=== PATIENT | female | born 1965 ===

== ENCOUNTER → 2023-01-29 | Outpatient (CLI) | payer OTHER ==
[2023-01-29 12:53] LABS: Alanine Aminotransfer (ALT/SGP 28 U/L (12-78); Albumin, Blood 3.8 g/dL (3.4-5.0); Alk Phos 70 U/L (50-136); Anion Gap 8 mmol/L (6-16); Aspartate Aminotrans (AST/SGOT 19 U/L (12-37); Bilirubin, Total 0.4 mg/dL (0.1-1.0); Blood Urea Nitrogen 11 mg/dL (8-24); Bun/Creatinine Ratio 15.5 (12.0-20.0); CHOL/HDL RATIO 2.6; CO2, Blood 26 mmol/L (21-32); Chloride, Blood 108 mmol/L (98-108); Cholesterol 183 mg/dL (50-200); Creatinine, Blood 0.71 mg/dL (0.40-1.00); Globulin, Blood 3.8 g/dL (2.2-4.0); Glomerular Filtration Rate 100 (60-); Glucose, Blood 102 mg/dL (70-99); HDL Cholesterol 70 mg/dL (>39); LDL/HDL RATIO 1.3; Low Density Lipoprotein Chol 92 mg/dL (0-110); Potassium, Blood 3.9 mmol/L (3.5-5.5); Sodium, Blood 142 mmol/L (136-145); Total Protein, Blood 7.6 g/dL (6.4-8.2); Triglycerides 106 mg/dL (30-160); Very Low Density Lipoprot Chol 21 mg/dL (6-32)
== END | disposition home or self-care (01) ==
LOC: LAB 09:30 → LAB SHORT 09:30
PROVIDERS: Physician Assistant
DX: Z00.00 Encounter for general adult medical examination without abnormal findings (principal)
CPT/HCPCS: 80053; 80061

== ENCOUNTER → 2024-05-05 | Outpatient (CLI) | payer OTHER ==
[2024-05-19 09:00] LABS: HPV GENOTYPE 16 BY TMA Not Detected; HPV GENOTYPE 18/45 BY TMA Not Detected; HPV HIGH RISK BY TMA Detected; HPV SOURCE Cervical; HPVG SOURCE Cervical
== END ==
LOC: LAB 10:34 → LAB SHORT 10:34
PROVIDERS: Family Medicine
DX: Z01.419 Encounter for gynecological examination (general) (routine) without abnormal findings (principal)
CPT/HCPCS: 87624; 87625; G0123

== ENCOUNTER → 2024-10-20 | Outpatient (CLI) | payer OTHER | END | disposition home or self-care (01) | LOC: LAB 13:23 → LAB SHORT 13:23 | DX: R87.613 High grade squamous intraepithelial lesion on cytologic smear of cervix (HGSIL) (principal) | CPT/HCPCS: 88305 ==

== ENCOUNTER 2024-11-27 06:58 | Day surgery (SDC) | payer OTHER ==
[~2024-11-27] VITALS: Ht 175.3 cm; Wt 119.6 kg
[~2024-11-27 06:58] MED LIST: Lactated Ringer's 1,000 ML IV ONE; Vasopressin 20 UNITS/ML 1ML Vial ONE
[2024-11-27] MEDS ORDERED: ACET500 (07:55)
[2024-11-27] MEDS ORDERED: VITAMIN E (07:56)
[2024-11-27] MEDS ORDERED: Vitamin B Comple1 EA PO (07:56)
[2024-11-27] MEDS ORDERED: VITAMIN D (07:57)
[2024-11-27] MEDS ORDERED: MULTIVITAMIN (07:57)
[2024-11-27] MEDS ORDERED: IRON (07:57)
[2024-11-27] MEDS ORDERED: GINKGO60 MG (07:57)
[2024-11-27] MEDS ORDERED: Lactated Ringer's 1,000 ML IV ONE (08:01)
[2024-11-27] MEDS ORDERED: propofoL 20 ML IV ONE (08:06)
[2024-11-27] MEDS ORDERED: Midazolam HCl 1MG / ML 2ML Vial ONE (08:06)
[2024-11-27] MEDS ORDERED: FentaNYL Citrate 50 MCG/ML 2 ML Injection ONE (08:06)
--- NOTE | 2024-11-27 08:42 | NUR ---
11/27/24 0842 CHRISTOPHER CARVER pt up to bathroom with one assist
[2024-11-27] MEDS ORDERED: Ondansetron HCl 2 MG / ML 2ML Vial ONE (08:43)
[2024-11-27] MEDS ORDERED: Ketorolac Tromethamine 30mg Vial ONE (08:43)
[2024-11-27] MEDS ORDERED: Dexamethasone Sod Phos 10 MG/ML 1ML VIAL ONE (08:43)
[2024-11-27] MEDS ORDERED: Lidocaine HCl 1% 20 ML MDV INJ ONE (09:12)
[2024-11-27] MEDS ORDERED: Glycopyrrolate 0.2 MG/ML 5ML VIAL ONE (09:12)
[2024-11-27 10:25] VITALS: BP 134/80
== END 2024-11-27 10:10 | disposition home or self-care (01) ==
LOC: ORSCSDS 06:58
PROVIDERS: Obstetrics & Gynecology
PROC: 0UBC7ZX Excision of Cervix, Via Natural or Artificial Opening, Diagnostic (ICD-10-PCS; principal; 2024-11-27 08:30)
DX: R87.613 High grade squamous intraepithelial lesion on cytologic smear of cervix (HGSIL) (principal); J45.909 Unspecified asthma, uncomplicated; F17.210 Nicotine dependence, cigarettes, uncomplicated; E66.01 Morbid (severe) obesity due to excess calories; Z68.39 Body mass index [BMI] 39.0-39.9, adult; F41.9 Anxiety disorder, unspecified; F32.A Depression, unspecified; Z79.899 Other long term (current) drug therapy
CPT/HCPCS: 88305; J1100; J1885; J2250; J2405; J2704; J3010; J7120